=== PATIENT | female | born 1965 | race African-American/Black ===

== ENCOUNTER → 2016-10-19 | Outpatient (CLI) | payer OTHER ==
--- NOTE | 2016-10-19 15:04 | RAD ---
DATE: 10/19/16 EXAM: DIGITAL SCREEN BILAT W/CAD HISTORY: Routine screening COMPARISON: None available. This is a baseline exam. This study was interpreted with the benefit of Computerized Aided Detection (CAD). TECHNIQUE: Routine CC and MLO views of both breasts are obtained. FINDINGS: The breast tissue density is [B, scattered fibroglandular densities are seen. ] . There is a ovoid nodule in the right upper outer breast. There are no suspicious microcalcifications or evidence of architectural distortion. Skin and nipples are intact IMPRESSION: Nodule in the upper outer right breast. This probably represents a lymph node, however Since this is a baseline exam, confirmation with ultrasound may be obtained BI-RADS CATEGORY: 0 INCOMPLETE: NEED ADDITIONAL IMAGING EVALUATION AND/OR PRIOR MAMMOGRAMS FOR COMPARISON. RECOMMENDED FOLLOW-UP: ADD ADDITIONAL IMAGING PQRS compliance statement: Patient information was entered into a reminder system with a target due date for the next mammogram. Mammography is a sensitive method for finding small breast cancers, but it does not detect them all and is not a substitute for careful clinical examination. A negative mammogram does not negate a clinically suspicious finding and should not result in delay in biopsying a clinically suspicious abnormality. "Our facility is accredited by the [employer] Mamm[employer]."
== END | disposition home or self-care (01) ==
LOC: MAMMO 14:15
PROVIDERS: ATTEND Internal Medicine
DX: Z12.31 Encounter for screening mammogram for malignant neoplasm of breast (principal)
CPT/HCPCS: G0202; 77067

== ENCOUNTER → 2017-05-04 | Outpatient (CLI) | payer OTHER ==
--- NOTE | 2017-05-04 14:40 | RAD ---
DATE: 05/04/2017 EXAM: DIGITAL DIAGNOSTIC RT, BREAST RIGHT HISTORY: Right breast mass follow-up. COMPARISON: Mammogram 10/19/2016 This study was interpreted with the benefit of Computerized Aided Detection (CAD). The breast parenchyma shows scattered fibroglandular densities. Breast parenchyma level B. FINDINGS: CC and MLO views of the right breast were performed. Targeted ultrasound was utilized. There is a oval circumscribed mass in the upper outer right breast at posterior depth, not significantly enlarged since the prior examination. The mass measures maximally 9 mm on mammogram. Targeted ultrasound at the 10:00 position was performed, approximately 8 cm from the nipple. In this region is a 8 mm hypoechoic mass which is oval, parallel with angular margins. No calcifications are identified. Findings may represent an intramammary lymph node, however there is asymmetric thickening of the cortex measuring approximately 3.3 mm. Findings were discussed with the patient and options to either follow this mass by ultrasound in 6 months versus ultrasound guided core needle biopsy was suggested. At this time, recommendation was made to perform ultrasound-guided core needle biopsy. Patient preferred to not make a decision at this time. Findings will be discussed with the primary provider. IMPRESSION: Suspicious findings. 8 mm mass in the upper outer right breast may represent an intramammary lymph node, however there are atypical characteristics, as detailed above. Recommend ultrasound-guided core needle biopsy. BI-RADS CATEGORY: 4 SUSPICIOUS ABNORMALITY- BIOPSY SHOULD BE CONSIDERED RECOMMENDED FOLLOW-UP: BIO BIOPSY RECOMMENDED PQRS compliance statement: Mammography is a sensitive method for finding small breast cancers, but it does not detect them all and is not a substitute for careful clinical examination. A negative mammogram does not negate a clinically suspicious finding and should not result in delay in biopsying a clinically suspicious abnormality. "Our facility is accredited by the [employer]ammography [employer]."
== END | disposition home or self-care (01) ==
LOC: MAMMO 13:01
PROVIDERS: ATTEND Internal Medicine
DX: N63 Unspecified lump in breast (principal)
CPT/HCPCS: 76641; G0206; 77065

== ENCOUNTER → 2017-05-20 | Outpatient (CLI) | payer OTHER ==
--- NOTE | 2017-05-20 14:59 | RAD ---
Exam performed: Right breast ultrasound. History: Abnormal previous mammogram and ultrasound. Date of service: 05/20/17. Comparison: 05/04/17. Discussion: Patient presents for a right breast biopsy of the probably suspicious nodule. Upon scanning today, an ovoid gently lobulated 8.1 x 2.7 mm predominantly hypo to anechoic nodule with a few fine internal echoes is seen at 10:00 position, 8 cm from the nipple. No internal vascularity is evident. Impression: An ovoid gently lobulated hypoechoic /anechoic nodule with fine internal echoes is seen at 10:00 position, 8 cm from the nipple. No internal vascularity is identified. It could possibly represent a cyst with debris. A short-term interval follow-up ultrasound in approximately 3 months may be obtained to ensure interval stability. If the findings appear suspicious at that time, a image guided biopsy may be performed. The results were discussed with the patient and she agrees to follow-up rather than pursuing the biopsy today. BI-RADS 3. Probably benign findings RECOMMENDATION: ROUTINE SCREENING MAMMOGRAPHY, PER ACR GUIDELINES.
== END | disposition home or self-care (01) ==
LOC: US 15:48
PROVIDERS: ATTEND Internal Medicine
DX: R92.8 Other abnormal and inconclusive findings on diagnostic imaging of breast (principal)
CPT/HCPCS: 76641

== ENCOUNTER → 2017-06-15 | Outpatient (CLI) | payer OTHER ==
[~2017-06-15] VITALS: Ht 160 cm; Wt 88.5 kg
[2017-06-15 08:24] VITALS: BP 143/82
--- NOTE | 2017-06-15 09:15 | RAD ---
DATE: 06/15/2017 EXAM: DIGITAL DIAGNOSTIC RT, GUIDE NDL PLACE/ASPI/BX HISTORY: 51-year-old female presents for sonographic guided biopsy of an 8 mm hypoechoic lesion within the posterior 10:00 position of the right breast demonstrated on a recent sonogram dated 05/04/2017 COMPARISON: 05/04/2017 and 10/28/2016 TECHNIQUE: The risks of the procedure were discussed with the patient and written and verbal consent was obtained. A timeout was performed. Sonographic imaging of the right breast was performed and the lesion at the 10:00 position was identified. The skin overlying this region was sterilely prepped, draped and infiltrated with 1% lidocaine. Core samples were obtained through the lesion of concern sonographic guidance. A biopsy clip was advanced into the biopsy bed with sonographic guidance. Manual compression was maintained until hemostasis was achieved. A sterile bandage placed. A postbiopsy mammogram including full field digital clinical and mediolateral oblique images was obtained. The breast parenchyma is level B: Scattered fibroglandular densities. The images demonstrate the biopsy clip in expected position, with surrounding increased density due to recent post biopsy change. The patient tolerated the procedure without difficulty and was discharged in stable condition. This study was interpreted with the benefit of Computerized Aided Detection (CAD). IMPRESSION: 1. Sonographic guided biopsy of an 8 mm hypoechoic lesion within the right breast and postbiopsy clip placement. 2. An addendum to this report will be submitted when pathology results are available. Mammography is a sensitive method for finding small breast cancers, but it does not detect them all and is not a substitute for careful clinical examination. A negative mammogram does not negate a clinically suspicious finding and should not result in delay in biopsying a clinically suspicious abnormality. "Our facility is accredited by the [employer] Mammography [employer]."
--- NOTE | 2017-06-17 10:34 | PATHOLOGY ---
PATHOLOGY REPORT * * * * * * * * FINAL DIAGNOSIS: Breast nodule, right, core needle biopsy: - Lymphoid tissue with no significant histopathologic diagnosis. - No breast tissue identified. (Please see comment) (SKM:[email or web address]; 06/17/2017) COMMENT: This case has also been reviewed by Dr. Giuliano Torres M.D., who agrees with the diagnosis. REPORT ELECTRONICALLY SIGNED BY: Alida Judd M.D. DATE/TIME: 06/17/2017 10:32 * * * * * * * * GROSS PATHOLOGY: Received in formalin labeled "Yolanda Soares, right breast," are multiple needle cores of yellow-ron fibrofatty tissue measuring 0.8 x 0.4 x 0.3 cm in aggregate dimensions. The tissue is submitted in its entirety in cassette A1. The cold ischemic time is 0 minutes. The total formalin fixation time is 13 hours. ([facility]; 06/15/17) INITIAL CPT CODE(S): A; 93838 Professional services [place] [facility] [place] [address] Technical services performed by [facility] at [address] [place] [address] [address], [place] [address]. SPECIMEN(S) RECEIVED: A.Right breast nodule CLINICAL HISTORY: 0.8 cm right breast nodule PATIENT: YOLANDA SOARES /AGE: 109/28/1965 (Age: 51) PATIENT #: [id number] ALT CASE #: SPECIMEN COLLECTION DATE: 06/15/2017 SPECIMEN RECEIVED DATE: 06/15/2017 [facility] - [address] [place] [address] - PHONE: [phone] * * * END OF REPORT * * *
== END | disposition home or self-care (01) ==
LOC: US 07:52
PROVIDERS: ATTEND Internal Medicine
DX: N63 Unspecified lump in breast (principal)
CPT/HCPCS: 76942; C1713; G0206; 77065

== ENCOUNTER → 2018-07-18 | Outpatient (CLI) | payer OTHER ==
[2017-06-15 08:24] VITALS: BP 143/82
--- NOTE | 2018-07-19 10:04 | RAD ---
DATE: 07/18/2018 EXAM: MAMMO SUSHIL SCREENING BILATERAL HISTORY: Routine screening. History of right breast biopsy. COMPARISON: Previous mammogram from 2017 This study was interpreted with the benefit of Computerized Aided Detection (CAD). FINDINGS: Breast Density: SCATTERED The breast parenchyma shows scattered fibroglandular densities. Breast parenchyma level B. The skin and nipples are within normal limits. Upper outer quadrant right breast biopsy clip. No suspicious calcifications, spiculated mass or area of architectural distortion. IMPRESSION: No mammographic evidence of malignancy. Stable mammogram. BI-RADS CATEGORY: 2 BENIGN FINDING(S) RECOMMENDED FOLLOW-UP: 12M 12 MONTH FOLLOW-UP PQRS compliance statement: Patient information was entered into a reminder system with a target due date for the next mammogram. Mammography is a sensitive method for finding small breast cancers, but it does not detect them all and is not a substitute for careful clinical examination. A negative mammogram does not negate a clinically suspicious finding and should not result in delay in biopsying a clinically suspicious abnormality. "Our facility is accredited by the [employer]ammography [employer]."
== END | disposition home or self-care (01) ==
LOC: MAMMO 13:38
PROVIDERS: ATTEND Internal Medicine
DX: Z12.31 Encounter for screening mammogram for malignant neoplasm of breast (principal)
CPT/HCPCS: 77063; 77067

== ENCOUNTER → 2019-12-27 | Outpatient (CLI) | payer OTHER ==
[2017-06-15 08:24] VITALS: BP 143/82
[2019-12-27 10:51] LABS: HEMATOCRIT 39.6 % (36.0-47.0); HEMOGLOBIN 12.3 g/dL (12.0-15.5); RED BLOOD COUNT 5.47 x10^6/uL (3.50-5.40); RED CELL DISTRIBUTION WIDTH 13.5 % (11.5-14.5); WHITE BLOOD COUNT 3.7 x10^3/uL (4.0-11.0)
[2019-12-27 11:24] LABS: ALBUMIN 3.6 g/dL (3.4-5.0); CALCIUM 9.1 mg/dL (8.5-10.1); CHOLESTEROL/HDL RATIO 4.1; CREATININE 0.9 mg/dL (0.6-1.0); GFR 79.6; POTASSIUM 3.8 mmol/L (3.5-5.1); TOTAL BILIRUBIN 0.4 mg/dL (0.2-1.0); TOTAL PROTEIN 7.3 g/dL (6.4-8.2)
[2019-12-27 11:27] LABS: FREE T4 1.22 ng/dL (0.76-1.46); THYROID STIM HORMONE (TSH) 1.633 uIU/mL (0.358-3.74)
[2019-12-29 00:07] LABS: HEMOGLOBIN A1C 14.1 % (4.8-5.6)
== END | disposition home or self-care (01) ==
LOC: LAB 10:26
PROVIDERS: ATTEND Nurse Practitioner Family
DX: Z13.9 Encounter for screening, unspecified (principal); R73.09 Other abnormal glucose
CPT/HCPCS: 36415; 80053; 80061; 82306; 83036; 84439; 84443; 85027

== ENCOUNTER → 2020-08-07 | Outpatient (CLI) | payer OTHER ==
[2017-06-15 08:24] VITALS: BP 143/82
--- NOTE | 2020-08-07 14:20 | RAD ---
DATE: 08/07/2020 9:09 AM EXAM: MAMMO SUSHIL SCREENING BILATERAL HISTORY: Screening COMPARISON: 07/26/2019 Bilateral CC and MLO views of the breasts were performed. Bilateral breast tomosynthesis was performed in CC and MLO projections. This study was interpreted with the benefit of Computerized Aided Detection (CAD). FINDINGS: Breast Density: FATTY The Breast Parenchyma is primarily fatty replaced. Breast parenchyma level density A. No suspicious masses, microcalcifications or architectural distortion is present to suggest malignancy in either breast. The visualized axillae are unremarkable. IMPRESSION: No mammographic evidence of malignancy. BI-RADS CATEGORY: 1 NEGATIVE RECOMMENDED FOLLOW-UP: 12M 12 MONTH FOLLOW-UP Annual screening mammography is recommended, unless clinically indicated sooner based on symptoms or change in physical exam. PQRS compliance statement: Patient information was entered into a reminder system with a target due date for the next mammogram. Mammography is a sensitive method for finding small breast cancers, but it does not detect them all and is not a substitute for careful clinical examination. A negative mammogram does not negate a clinically suspicious finding and should not result in delay in biopsying a clinically suspicious abnormality. "Our facility is accredited by the [employer] Mammography [employer]."
== END ==
LOC: MAMMO 09:02
PROVIDERS: ATTEND Nurse Practitioner Family
DX: Z12.31 Encounter for screening mammogram for malignant neoplasm of breast (principal)
CPT/HCPCS: 77063; 77067

== ENCOUNTER → 2021-08-26 | Outpatient (CLI) | payer OTHER ==
[2017-06-15 08:24] VITALS: BP 143/82
--- NOTE | 2021-08-26 10:33 | RAD ---
BILATERAL DIGITAL SCREENING 2-D AND 3-D MAMMOGRAM INDICATION: Routine screening. COMPARISON: August 07, 2020, July 26, 2019, July 18, 2018 and June 15, 2017 Interpretation was made using CAD. FINDINGS: Breast Density: There are scattered areas of fibroglandular density. RIGHT BREAST: No suspicious masses, calcifications or areas of architectural distortion are seen. LEFT BREAST: No suspicious masses, calcifications or areas of architectural distortion are seen. IMPRESSION: 1. No imaging evidence of malignancy. ASSESSMENT: BI-RADS 1. Negative. RECOMMENDATION: Routine annual screening mammogram. The facility will notify the patient of the results via mail. Patient information will be entered int o the mammography reminder system with a target recall date for the next mammogram. A reminder letter will be generated by the facility. Electronically signed by: Spring Delatorre MD (08/26/2021 10:30 AM) [id number]
== END ==
LOC: MAMMO 07:48
PROVIDERS: ATTEND Internal Medicine
DX: Z12.31 Encounter for screening mammogram for malignant neoplasm of breast (principal)
CPT/HCPCS: 77063; 77067